=== PATIENT | male | born 1995 | race Caucasian/White ===

== ENCOUNTER 2023-07-31 23:15 | Emergency (ER) | payer SELFPAY ==
[~2023-07-31 23:15] MED LIST: Iopamidol-370 76% 500 ML MDV (1 ML CHARGE) ONE
[2023-07-31] MEDS ORDERED: fentaNYL 50 mcg/mL 1 mL Vial ONE (23:24)
[2023-07-31 23:39] LABS: #Basophils 0.05 10x3/uL (0.0-0.2); %Basophils 0.5 % (0.0-1.0); %Monocytes 5.2 % (0.0-10.0); %Neutrophils 49.5 % (42.0-75.0); Hematocrit 39.3 % (42.0-52.0); Mean Corpuscular HGB CONC 35.6 g/dL (32.0-36.0); Mean Corpuscular Hemoglobin 30.3 pg (27.0-31.0); Mean Corpuscular Volume 85.1 fL (78.0-98.0); Mean Platelet Volume 9.5 fL (7.4-10.4); Platelet Count 327 10x3/uL (130-400); RBC Distribution Width 13.3 % (11.5-14.5); Red Blood Cell (RBC) Count 4.62 mill/uL (4.70-6.10)
[2023-07-31 23:53] LABS: Acetaminophen Less than 10 mcg/mL (10.0-30.0); Alcohol Less than 10.0 mg/dL (Less than 10); INR-International Normal Ratio 1.1; Lipase 90 U/L (8-78); Prothrombin Time 14.6 sec (12.0-14.7); Salicylate Less than 8.0 mg/dL (15.0-30.0)
[2023-07-31 23:54] LABS: ALT (SGPT) 48 U/L (8-55); AST (SGOT) 56 U/L (5-34); Albumin 3.9 g/dL (3.5-5.0); Alkaline Phosphatase 62 U/L (40-110); Anion Gap 17 mmol/L (10-20); BUN (Urea Nitrogen) 7 mg/dL (8.9-20.6); Bilirubin, Total 1.1 mg/dL (0.2-1.2); Calc. Creatinine Clearance 0 mL/min (70-130); Calcium 9.1 mg/dL (7.8-10.44); Carbon Dioxide 23 mmol/L (22-29); Chloride 106 mmol/L (98-107); Estimated GFR 108; Globulin 2.6 g/dL (2.4-3.5); Glucose 117 mg/dL (70-105); PTT 26.3 sec (22.9-36.1); Protein, Total 6.5 g/dL (6.0-8.3); Sodium 142 mmol/L (136-145)
[2023-08-01] MEDS ORDERED: CEFAZOLIN 2 GM VIAL ONE (00:20)
[2023-08-01] MEDS ORDERED: Boostrix 0.5 ML (Tdap) VIAL (>/=7 yrs of age) ONE (00:20)
[2023-08-01] MEDS ORDERED: Sodium Chloride 0.9% 100 ML ONE (00:20)
[2023-08-01 00:26] LABS: Actual Bicarbonate (HCO3v) 23.9 mEq/L (22-28); Base Excess -2.4 mEq/L (-2.0 to +3.0); Calcium, Ionized (venous) 1.13 mmol/L (1.16-1.32); Chloride (VBG) 102 mmol/L (98-106); Hematocrit-VBG 43 % (42.0-52.0); Hemoglobin (Hb) 14.6 g/dL (13.2-17.3); Potassium (VBG) 3.82 mmol/L (3.70-5.30); Sodium 140 mmol/L (133-146); pH (venous) 7.327 (7.32-7.43)
[2023-08-01 00:32] LABS: Troponin I Less than 0.010 ng/mL (< 0.028)
[2023-08-01] MEDS ORDERED: Ketamine In 0.9 % NaCl 50 MG/5 ML SYRINGE ONE (00:45)
[2023-08-01] MEDS ORDERED: HYDROmorphone 0.5 MG/0.5 ML SYRINGE ONE (01:17)
[2023-08-01] MEDS ORDERED: Tranexamic Acid 1,000 MG/10 ML VIAL ONE (01:44)
[2023-08-01] MEDS ORDERED: KETAMINE 100 MG/ML (5ML VIAL) ONE (01:50)
[2023-08-01] MEDS ORDERED: Rocuronium Bromide 10 MG/ML (10ML VIAL) ONE ×2 (01:51→02:19)
[2023-08-01] MEDS ORDERED: PHENYLEPHRINE-NS 100 MCG/ML 10 ML SYRINGE ONE (02:19)
[2023-08-01] MEDS ORDERED: fentaNYL PF 100 MCG/2 ML SYRINGE ONE (02:19)
[2023-08-01] MEDS ORDERED: Famotidine/PF 20 mg/2ml Vial ONE (02:22)
[2023-08-01 02:55] LABS: Base Excess (BEa) -3.4 mEq/L (-2.0 to +3.0); CO2 Tension 35.4 mmHg (35.0-45.0); Calcium, Ionized (arterial) 1.07 mmol/L (1.12-1.30); Carboxyhemoglobin (COHb) 0.3 gm% (0.0-3.0); Hematocrit-ABG 34 % (42.0-52.0); Hemoglobin (Hb) 11.5 g/dL (14.0-18.0); O2 Tension (PaO2), arterial 572.4 mmHg (80.0-100.0); Puncture Site RRA; pH, Arterial 7.391 (7.35-7.45)
== END 2023-08-01 03:32 | disposition short-term general hospital (02) ==
LOC: ERS 23:15
DX: S12.100A Unspecified displaced fracture of second cervical vertebra, initial encounter for closed fracture (principal); S75.002A Unspecified injury of femoral artery, left leg, initial encounter; S82.832B Other fracture of upper and lower end of left fibula, initial encounter for open fracture type I or II; S72.92XB Unspecified fracture of left femur, initial encounter for open fracture type I or II; I10 Essential (primary) hypertension; Z87.891 Personal history of nicotine dependence; V89.2XXA Person injured in unspecified motor-vehicle accident, traffic, initial encounter
CPT/HCPCS: 31500; 36415; 36430; 36600; 70450; 70498; 71045; 71260; 72125; 72170; 74177; 80053; 80307; 82805; 83605; 83690; 83735; 84484; 85025; 85610; 85730; 86850; 86900; 86901; 90471; 90715; 93005; 96374; 96375; G0390; J1170; J3010; J3490; P9016; Q9967; S0028

== ENCOUNTER 2023-08-20 19:51 | Emergency (ER) | payer OTHER, SELFPAY ==
[2023-08-20] MEDS ORDERED: Ondansetron PF 4 MG/2 ML Vial ONE (21:27)
[2023-08-20] MEDS ORDERED: fentaNYL 50 mcg/mL 1 mL Vial ONE ×2 (21:27→21:39)
[2023-08-20 21:38] LABS: ALT (SGPT) 56 U/L (8-55); AST (SGOT) 25 U/L (5-34); Albumin 3.2 g/dL (3.5-5.0); Alkaline Phosphatase 122 U/L (40-110); Anion Gap 18 mmol/L (10-20); BUN (Urea Nitrogen) 19 mg/dL (8.9-20.6); Bilirubin, Total 0.9 mg/dL (0.2-1.2); Calc. Creatinine Clearance 0 mL/min (70-130); Calcium 9.5 mg/dL (7.8-10.44); Carbon Dioxide 22 mmol/L (22-29); Chloride 102 mmol/L (98-107); Estimated GFR 134; Globulin 4.3 g/dL (2.4-3.5); Glucose 102 mg/dL (70-105); Lipase 11 U/L (8-78); Potassium 4.4 mmol/L (3.5-5.1); Protein, Total 7.5 g/dL (6.0-8.3); Sodium 138 mmol/L (136-145)
[2023-08-20 21:42] LABS: Hematocrit 32.2 % (42.0-52.0); Hemoglobin 10.7 g/dL (14.0-18.0); Mean Corpuscular HGB CONC 33.2 g/dL (32.0-36.0); Mean Corpuscular Hemoglobin 30.3 pg (27.0-31.0); Mean Corpuscular Volume 91.2 fL (78.0-98.0); Mean Platelet Volume 9.5 fL (7.4-10.4); Platelet Count 533 10x3/uL (130-400); RBC Distribution Width 15.4 % (11.5-14.5); Red Blood Cell (RBC) Count 3.53 mill/uL (4.70-6.10)
[2023-08-20] MEDS ORDERED: Morphine 4 MG/ML VIAL ONE (22:23)
[2023-08-20 22:24] LABS: Band 2 % (5-11); Lymphocytes 12 % (21-51); Macrocytosis SLIGHT = 6-15 cells HPF (0-5); Monocytes 6 % (0-10); Neutrophil 80 % (42-75); Platelet Adequacy Comment Platelets Normal; Polychromasia SLIGHT = 2-3 cells HPF (0-2)
[2023-08-20] MEDS ORDERED: Piperacillin/Tazobactam 4.5 GM VIAL ONE (23:35)
[2023-08-20] MEDS ORDERED: Sodium Chloride 0.9% 100 ML ONE (23:35)
== END 2023-08-21 00:15 | disposition home or self-care (01) ==
LOC: ERS 19:51
DX: T85.79XA Infection and inflammatory reaction due to other internal prosthetic devices, implants and grafts, initial encounter (principal); I10 Essential (primary) hypertension; Z87.891 Personal history of nicotine dependence
CPT/HCPCS: 36415; 74177; 80053; 83605; 83690; 85025; 96374; 96375; J2270; J2405; J2543; J3010; J3490